=== PATIENT | male | born 1985 | race Caucasian/White ===

== ENCOUNTER → 2016-10-29 | Outpatient (CLI) | payer OTHER | LOC: CARD 07:48 | PROVIDERS: ATTEND Nurse Practitioner Community Health | DX: R01.1 Cardiac murmur, unspecified (principal); I38 Endocarditis, valve unspecified; Z82.49 Family history of ischemic heart disease and other diseases of the circulatory system | CPT/HCPCS: 93306 ==

== ENCOUNTER 2016-10-30 08:12 | Day surgery (SDC) | payer OTHER ==
[~2016-10-30] VITALS: Ht 182.9 cm; Wt 86.2 kg
[2016-10-30] VITALS (13 sets, daily range): BP systolic 116–144; BP diastolic 65–76
[2016-10-30] MEDS ORDERED: HEParin (CATH LAB) 2,000 ML IV ONE (08:15)
[2016-10-30] MEDS ORDERED: LIDOCAINE 1% INJ 20 ML (XYLOCAINE) VIAL ONE (08:15)
[2016-10-30] MEDS ORDERED: NS IV 1000 ML 1,000 ML ONE (08:15)
[2016-10-30 08:41] LABS: MEAN PLATELET VOLUME 9.8 FL (7.4-10.4); RED BLOOD COUNT 5.18 10^6/uL (4.35-5.85); RED CELL DISTRIBUTION WIDTH 13.4 % (10.0-14.5); WHITE BLOOD COUNT 5.7 10^3/uL (4.3-11.0)
[2016-10-30] MEDS ORDERED: NS IV 1000 ML 1,000 ML IV SCH ×2 (08:45→13:08)
[2016-10-30 08:57] LABS: PROTHROMBIN TIME PATIENT 13.3 SEC (12.2-14.7)
[2016-10-30 09:05] LABS: ALANINE AMINOTRANSFERASE 44 U/L (0-55); ALBUMIN 4.7 G/DL (3.2-4.5); ANION GAP 10 MMOL/L (5-14); ASPARTATE AMINO TRANSFERASE 18 U/L (5-34); BILIRUBIN,TOTAL 1.5 MG/DL (0.1-1.0); BLOOD UREA NITROGEN 13 MG/DL (7-18); BUN/CREATININE RATIO 13; CALCIUM 9.6 MG/DL (8.5-10.1); CARBON DIOXIDE 26 MMOL/L (21-32); CHLORIDE 106 MMOL/L (98-107); CHOLESTEROL 185 MG/DL (< 200); DIRECT LDL 111 MG/DL (1-129); GFR ESTIMATED > 60; GLUCOSE 101 MG/DL (70-105); POTASSIUM 3.5 MMOL/L (3.6-5.0); SODIUM 142 MMOL/L (135-145); TOTAL PROTEIN 7.4 G/DL (6.4-8.2); TRIGLYCERIDES 85 MG/DL (<150); VLDL CHOLESTEROL 17 MG/DL (5-40)
[2016-10-30] MEDS ORDERED: MIDAZOLAM 5 MG/5 ML (VERSED) VIAL ONE (10:34)
[2016-10-30] MEDS ORDERED: fentaNYL INJECTION 100 MCG/2 ML AMP ONE (10:34)
[2016-10-30] MEDS ORDERED: diphenhydrAMINE 50 MG/ML INJ (BENADRYL) ONE (10:35)
--- NOTE | 2016-10-30 13:07 | Cardiac Procedure Note-CS/ASA ---
Pre-Procedure Note Pre-Op Procedure Note H&P Reviewed The H&P was reviewed, patient examined and no changes noted. Date H&P Reviewed: Oct 30, 2016 Time H&P Reviewed: 10:15 Conscious Sedation Pre-Proced Time Reviewed: 10:15 ASA Class: 2 Airway Mallampati Classification: ([place] appropriate class) I. II. III, IV Lungs Heart ASA score ASA 1: a normal healthy patient ASA 2: a patient with a mild systemic disease (mid diabetes, controlled hypertension, obesity ASA 3: a patient with a severe systemic disease that limits activity (angina , COPD, prior Myocardial infarction) ASA 4: a patient with an incapacitating disease that is a constant threat to life (CHF, renal failure) ASA 5: a moribund patient not expected to survive 24 hrs. (ruptured aneurysm) ASA 6: a declared brain patient whose organs are being harvested. For emergent operations, add the letter E after the classification Grade 2 Sedation Plan: Analgesia, Amnesia, Plan communicated to team members, Discussed options with patient/fam, Discussed risks with patient/fam Note The patient is an appropriate candidate to undergo the planned procedure, sedation, and anesthesia. The patient immediately re-assessed prior to indication. HINA ANN MD FACP FAC CCDS Oct 30, 2016 13:07
--- NOTE | 2016-10-30 13:11 | Discharge Inst-Post CATH ---
Discharge Inst-CATH Post Cardiac Cath D/C Inst Follow Up/Plan F/u with Dr Puente on 11/05/16 CARDIAC CATH DISCHARGE INSTRUCTIONS *Hold Metformin for 48 hours post heart cath. ACTIVITY * Go Home directly and rest. * Limit activity of the leg (or wrist if it was used) for 7 days including aerobics, swimming, jogging, bicycling, etc. * Restrict stair-climbing for 7 days if possible, if not, climb up with your non -cath leg, then bring together on the same step. * Avoid lifting, pushing, pulling or excessive movement of the affected extremity for 7 days. * Customary sexual activity may be resumed after 2 days-use caution not to use a position that strains or causes pain to the affected extremity. * No driving for 24 hours. * NO SMOKING. * Avoid straining for bowel movements for 7 days. * Gentle walking on level ground is allowed. * Returning to work will depend on the type of procedure and the results. Your doctor will discuss this with you. CALL YOUR DOCTOR FOR ANY OF THE FOLLOWING: *If bleeding from the puncture site occurs- Apply gentle pressure to site with clean cloth and call your doctor or EMS. * If a knot or lump forms under the skin, increases in size, or causes pain. * If bruising appears to be worsening or moving further down your leg instead of disappearing. * Temperature above 101 F. CARE OF YOUR GROIN INCISION; * Bruising or purple discoloration of the skin near the puncture site is common. * You may shower only, no bathtub bathing for 5 days. Be careful to avoid slipping as your leg may feel stiff. * If a closure device was used on your femoral artery, please see the attached guide regarding care of the device and your leg. * REMOVE the dressing from your groin the next day after your procedure in the shower. CARE OF YOUR WRIST INCISION; * Bruising or purple discoloration of the skin near the puncture site is common. * You may shower. * DO NOT submerge wrist. * Remove dressing in 24 hours. HINA PUENTE MD [facility]S Oct 30, 2016 13:11
[2016-10-30] MEDS ORDERED: PATIENT MAY USE OWN MEDS, ALL PO SCH (13:15)
[2016-10-30] MEDS ORDERED: CATHETER FLUSH 10 ML SYR IV PRN (15:00)
--- NOTE | 2016-10-30 15:58 | CARDIAC CATHETERIZATION ---
DATE OF SERVICE: 10/30/2016 CARDIAC CATHETERIZATION INDICATION: The patient is a 31-year-old man who was recently diagnosed with a small ventricular septal defect on echocardiography for which he had been referred by his primary physician who had found a cardiac murmur on physical examination. Today, he comes in for cardiac catheterization for further evaluation of his intracardiac shunt. Informed consent was obtained for complete heart catheterization. PROCEDURE: He was brought to the cardiac catheterization laboratory in a fasting state. Right groin was prepared and draped in the usual sterile fashion. Lidocaine 1% was used for local anesthesia. Modified Seldinger technique was used to advance a 5-Liberian sheath into the right femoral artery and a 7-Liberian sheath into the right femoral vein. We used a 7-Liberian Enterprise-Daniel catheter to carry out right heart catheterization and to measure oxygen saturation in various right heart chambers. Oxygen saturation was measured in the inferior vena cava, low right atrium, mid right atrium, high right atrium, superior vena cava, right ventricle, pulmonary artery. We also measured oxygen saturation at the pulmonary wedge position. Pressure measurements were also obtained. The Enterprise-Daniel catheter was then removed. We used a 5-Liberian pigtail catheter to carry out left heart catheterization and to measure oxygen saturation in the left ventricle. Left ventricular angiography was then performed. The catheter was then pulled back to the aortic arch and aortic and descending thoracic aortic angiography was performed. The pigtail was then removed. We carried out left coronary angiography with a 5-Liberian JL4 catheter and right coronary angiography with 5-Liberian JR4 catheter. At the end of the procedure, angiography of the right femoral artery was carried out through the sheath and Mynx was used to achieve hemostasis for the arterial site and manual pressure was used to achieve hemostasis for the venous site. He tolerated the procedure well. HEMODYNAMICS: Pulmonary artery pressure was 27/17 with a mean of 20 mmHg. Mean pulmonary wedge pressure was 17 mmHg. The right ventricular pressure was 38/16. Right atrial mean pressure was 14 mmHg. Left ventricular pressure was 107/24. Cardiac output by thermodilution was 8.12. Cardiac index by thermodilution was 3.89. Lucrecia cardiac output was 10.8. Lucrecia cardiac index was 5.26. Pulmonary-to systemic-flow ratio was 2.64. LEFT VENTRICULAR ANGIOGRAPHY: Left ventricular angiography indicated normal global left ventricular systolic function. Left ventricular angiography was performed in the left anterior oblique projection. No regional wall motion abnormalities are seen in this view. There appears to be a small shunt, [id number], directed from the left ventricle into the right ventricle. CORONARY ANGIOGRAPHY: Left main coronary artery, left anterior descending artery, left circumflex artery, and right coronary artery are all angiographically normal. Right coronary artery is dominant. CONCLUSIONS: 1. Ventricular septal defect with [id number] shunt and pulmonary-systemic flow ratio of approximately 2.6. 2. Moderate elevation of left ventricular end-diastolic pressure. 3. Mild to moderate elevation of pulmonary wedge pressure. 4. Normal pulmonary artery systolic pressure. 5. Angiographically normal coronary arteries. 6. Normal global left ventricular systolic function with an ejection fraction of 65%. Job ID: [id number] DocumentID: [id number] Dictated Date: 10/30/2016 13:02:38 [employer] Date: 10/30/2016 15:14:56 Dictated By: HINA ANN MD, MA, FACP, FACC, MTDD
== END 2016-10-30 17:30 | disposition home or self-care (01) ==
LOC: CATH 08:12 → ICU 12:53 → ENPENDDIS 15:30 → CATH 17:30
PROVIDERS: ATTEND Nurse Practitioner Family
DX: Q21.0 Ventricular septal defect (principal); I45.4 Nonspecific intraventricular block
CPT/HCPCS: 36415; 80053; 80061; 85027; 85610; 85730; 87081; 93460

== ENCOUNTER 2016-11-06 07:04 | Day surgery (SDC) | payer OTHER ==
[2016-11-06] MEDS ORDERED: LIDOCAINE 2% VISCOUS 15 ML UDC ONE (07:10)
[2016-11-06] MEDS ORDERED: NS IV 1000 ML 1,000 ML ONE (07:10)
[2016-11-06] MEDS ORDERED: NS IV 1000 ML 1,000 ML IV SCH (07:45)
[2016-11-06] MEDS ORDERED: MIDAZOLAM 5 MG/5 ML (VERSED) VIAL ONE (07:59)
[2016-11-06] MEDS ORDERED: fentaNYL INJECTION 100 MCG/2 ML AMP ONE (07:59)
== END 2016-11-06 10:09 | disposition home or self-care (01) ==
DX: I25.41 Coronary artery aneurysm (principal); Q21.0 Ventricular septal defect; Z82.49 Family history of ischemic heart disease and other diseases of the circulatory system

== ENCOUNTER → 2017-03-20 | Outpatient (CLI) | payer OTHER ==
--- NOTE | 2017-03-20 10:17 | Diagnostic Imaging Report ---
PROCEDURE: MR imaging of the brain without contrast. TECHNIQUE: Multiplanar, multisequence MR imaging of the brain was performed without contrast. INDICATION: Headache. FINDINGS: There is no diffusion restriction suggest an acute infarct or other diffusion abnormality. The brain parenchyma demonstrates no significant signal abnormality to suggest a demyelinating process, brain edema or mass. The lateral ventricles are normal in size. The central vascular flow-voids appear from unremarkable. The pituitary gland is normal in size. No hypothalamic or pineal region mass is seen. The internal auditory canals and inner ear structures appear unremarkable. No extra-axial fluid collection is seen. The paranasal sinuses and orbits appear grossly unremarkable. IMPRESSION: Unremarkable exam. Dictated by: Dictated on workstation # [id number]
== END ==
LOC: RAD 09:19
PROVIDERS: ATTEND Nurse Practitioner Community Health
DX: R51 Headache (principal)
CPT/HCPCS: 70551